=== PATIENT | female | born 1950 | race Two or more races ===

== ENCOUNTER 2019-09-19 12:22 | Day surgery (SDC) | payer OTHER ==
[~2019-09-19] VITALS: Ht 149.9 cm; Wt 56.2 kg
[~2019-09-19 12:22] MED LIST: DIOVAN PO; GLUMETZA500 MG PO; OSTERA TABLET1 EACH PO
== END 2019-09-19 19:05 | disposition home or self-care (01) ==
LOC: CIR.AMB 12:22
DX: N20.0 Calculus of kidney (principal); N20.1 Calculus of ureter

== ENCOUNTER 2020-04-09 05:30 | Day surgery (SDC) | payer OTHER ==
[~2020-04-09 05:30] MED LIST changes: +GLIMEPIRIDE2 MG PO
== END 2020-04-09 17:00 | disposition home or self-care (01) ==
LOC: CIR.AMB 05:30
PROVIDERS: ATTEND Urology
DX: N13.5 Crossing vessel and stricture of ureter without hydronephrosis (principal); N20.0 Calculus of kidney; Z20.828 Contact with and (suspected) exposure to other viral communicable diseases

== ENCOUNTER 2020-06-01 07:34 | Day surgery (SDC) | payer OTHER | END 2020-06-01 17:35 | disposition home or self-care (01) | LOC: CIR.AMB 07:34 | PROVIDERS: ATTEND Urology | DX: N20.0 Calculus of kidney (principal); Z20.828 Contact with and (suspected) exposure to other viral communicable diseases ==

== ENCOUNTER 2020-11-05 09:00 | Day surgery (SDC) | payer OTHER | END 2020-11-05 22:00 | disposition home or self-care (01) | LOC: CIR.AMB 09:00 | PROVIDERS: ATTEND Urology | DX: N20.0 Calculus of kidney (principal); Z20.822 Contact with and (suspected) exposure to COVID-19 ==

== ENCOUNTER 2021-12-26 12:02 | Outpatient (CLI) | payer OTHER | END 2021-12-26 12:03 | disposition home or self-care (01) | LOC: NUCLEAR 12:02 | PROVIDERS: ATTEND Urology | DX: N13.1 Hydronephrosis with ureteral stricture, not elsewhere classified (principal) | CPT/HCPCS: 78708; A9539 ==

== ENCOUNTER 2022-10-01 12:37 | Outpatient (CLI) | payer OTHER | END 2022-10-01 12:38 | disposition home or self-care (01) | LOC: NUCLEAR 12:37 | PROVIDERS: ATTEND Urology | DX: N13.1 Hydronephrosis with ureteral stricture, not elsewhere classified (principal) | CPT/HCPCS: 78709; A9539; J1940 ==

== ENCOUNTER 2023-11-06 12:48 | Outpatient (CLI) | payer OTHER | END 2023-11-06 12:55 | disposition home or self-care (01) | LOC: TOM 12:48 | PROVIDERS: ATTEND Urology | DX: N20.0 Calculus of kidney (principal) ==